=== PATIENT | male | born 1940 | race Caucasian/White ===

== ENCOUNTER 2020-04-18 08:15 | Outpatient (RCR) | payer MEDICARE, BC | END 2020-04-26 16:11 | disposition home or self-care (01) | LOC: OPPGERO 08:15 | DX: F33.3 Major depressive disorder, recurrent, severe with psychotic symptoms (principal); Z90.49 Acquired absence of other specified parts of digestive tract; Z98.890 Other specified postprocedural states; Z98.49 Cataract extraction status, unspecified eye; Z91.5 Personal history of self-harm ==

== ENCOUNTER 2020-04-29 10:05 | Outpatient (RCR) | payer MEDICARE, BC | END 2020-05-29 15:18 | disposition home or self-care (01) | LOC: OPPGERO 10:05 | DX: F33.9 Major depressive disorder, recurrent, unspecified (principal); E78.5 Hyperlipidemia, unspecified; Z90.49 Acquired absence of other specified parts of digestive tract; Z98.49 Cataract extraction status, unspecified eye; Z98.890 Other specified postprocedural states; Z63.4 Disappearance and death of family member ==

== ENCOUNTER 2020-05-30 08:07 | Outpatient (RCR) | payer MEDICARE, BC | END 2020-06-28 15:51 | LOC: OPPGERO 08:07 | DX: F33.3 Major depressive disorder, recurrent, severe with psychotic symptoms (principal) ==

== ENCOUNTER 2020-07-01 09:30 | Outpatient (RCR) | payer MEDICARE, BC | END 2020-07-26 16:01 | disposition home or self-care (01) | LOC: OPPGERO 09:30 | DX: F33.3 Major depressive disorder, recurrent, severe with psychotic symptoms (principal); E78.5 Hyperlipidemia, unspecified; M54.5 Low back pain; Z90.49 Acquired absence of other specified parts of digestive tract; Z98.890 Other specified postprocedural states; Z63.4 Disappearance and death of family member; Z98.49 Cataract extraction status, unspecified eye ==

== ENCOUNTER 2020-07-30 10:09 | Outpatient (RCR) | payer MEDICARE, BC | END 2020-08-28 15:35 | disposition home or self-care (01) | LOC: OPPGERO 10:09 | DX: F33.2 Major depressive disorder, recurrent severe without psychotic features (principal); E78.5 Hyperlipidemia, unspecified; H91.90 Unspecified hearing loss, unspecified ear; Z98.890 Other specified postprocedural states; Z98.49 Cataract extraction status, unspecified eye; Z63.4 Disappearance and death of family member ==

== ENCOUNTER 2020-08-29 09:40 | Outpatient (RCR) | payer MEDICARE, BC | END 2020-09-27 22:30 | LOC: OPPGERO 09:40 | DX: F33.1 Major depressive disorder, recurrent, moderate (principal); F90.9 Attention-deficit hyperactivity disorder, unspecified type ==